=== PATIENT | female | born 1960 | race Caucasian/White ===

== ENCOUNTER 2020-06-25 14:46 | Emergency (ER) | payer OTHER ==
[2020-06-25 16:06] VITALS: PULSE 86; TEMP 97.7
[2020-06-25 16:53] LABS: Appearance,Urine Clear (Clear); Bilirubin,Urine Negative (Negative); Blood,Urine Negative (Negative); Color,Urine Yellow; Glucose,Urine (UA) Negative (Negative); Hyaline Casts,Urine 11 /lpf (0-2); Ketones,Urine Negative (Negative); Leukocyte Esterase,Urine Trace (Negative); Mucus,Urine Rare /hpf; Nitrite,Urine Negative (Negative); PH, Urine 6.5 (5.0-8.0); Protein,Urine 1+ (Negative); Squamous Epithelial Cell,Urine <1 /hpf (0-4); Urobilinogen,Urine <2.0 mg/dL (<2.0); WBC,Urine 1 /hpf (0-5)
--- NOTE | 2020-06-25 17:33 | XR ---
RESULT: HISTORY: fall with pain. TECHNIQUE: 2 views of the right tibia and fibula were obtained. COMPARISON: None. FINDINGS: There is no acute fracture or dislocation. The visualized joint spaces are preserved. Atherosclerotic calcifications are seen. Partially imaged prepatellar soft tissue edema. IMPRESSION: Soft tissue edema without acute osseous abnormality.
[2020-06-25] MEDS ORDERED: FUROSEMIDE 10 MG/ML 2 ML VIAL IV ONE (17:58)
[2020-06-25] MEDS ORDERED: FUROSEMIDE 20 MG TAB PO STA (18:04)
[2020-06-25 18:11] VITALS: BP 136/79; RESP 16
--- NOTE | 2020-06-25 18:11 | ED ---
Fall HPI - General Source: patient, RN notes reviewed Mode of arrival: ambulatory <Houston Brewster - Last Filed: 06/25/20 18:32> <Jyotsna Khalil - Last Filed: 06/27/20 12:09> - General Chief Complaint: Fall Stated Complaint: Unable to urinate, Dizziness, confusion Time Seen by Provider: 06/25/20 17:44 - History of Present Illness Initial Comments: Patient is a 60-year-old female that presents to emergency department status post fall with a right leg injury. She notes that she didn't fall very far and cut hit her caballero which caused a blood blister which then turned into a small skin tear. She was in no apparent pain or distress while sitting up in bed during exam and interview. She noted that she has been taking Lasix at home for fluid retention. She did report that she's missed the last 3 doses of Lasix. She reports that she is very puffy all over the plantar legs, stomach, general area. She stated that her genital area was puffy and her legs were pinching it. She denied any chest pain first breath headache nausea vomiting diarrhea constipation fever fatigue chills. (Houston Brewster) - Related Data Allergies Allergy/AdvReac Type Severity Reaction Status Date / Time hydrochlorothiazide Allergy Rash/Hives Verified 06/25/20 16:06 Review of Systems ROS Other: All systems not noted in ROS Statement are negative. <Houston Brewster - Last Filed: 06/25/20 18:32> ROS Other: All systems not noted in ROS Statement are negative. <Jyotsna Khalil - Last Filed: 06/27/20 12:09> ROS Statement: Those systems with pertinent positive or pertinent negative responses have been documented in the HPI. Past Medical History Additional Past Medical History / Comment(s): LUPUS History of Any Multi-Drug Resistant Organisms: None Reported Past Surgical History: Orthopedic Surgery Past Psychological History: No Psychological Hx Reported Smoking Status: Never smoker Past Alcohol Use History: Occasional Past Drug Use History: None Reported <Houston Brewster - Last Filed: 06/25/20 18:32> General Exam Limitations: no limitations General appearance: alert, in no apparent distress Head exam: Present: atraumatic, normocephalic, normal inspection Eye exam: Present: normal appearance, PERRL, EOMI. Absent: scleral icterus, conjunctival injection, periorbital swelling Neck exam: Present: normal inspection. Absent: tenderness, meningismus, lymphadenopathy Respiratory exam: Present: normal lung sounds bilaterally. Absent: respiratory distress, wheezes, rales, rhonchi, stridor Cardiovascular Exam: Present: regular rate, normal rhythm, normal heart sounds. Absent: systolic murmur, diastolic murmur, rubs, gallop, clicks GI/Abdominal exam: Present: soft, normal bowel sounds. Absent: distended, tenderness, guarding, rebound, rigid Extremities exam: Present: normal inspection, full ROM, normal capillary refill, other (One plus edema bilateral lower extremities, patient does take Lasix at home). Absent: tenderness, pedal edema, joint swelling, calf tenderness Neurological exam: Present: alert, oriented X3, CN II-XII intact Psychiatric exam: Present: normal affect, normal mood Skin exam: Present: warm, dry, intact, normal color, other (2 cm x 2 cm skin tear to the anterior side of the distal portion of the right caballero.). Absent: rash <Houston Brewster - Last Filed: 06/25/20 18:32> Course Vital Signs 06/25/20 06/25/20 16:00 18:10 Temperature 97.7 F Pulse Rate 86 86 Respiratory 17 16 Rate Blood Pressure 173/100 136/79 O2 Sat by Pulse 96 99 Oximetry Medical Decision Making <Houston Brewster - Last Filed: 06/25/20 18:32> <Jyotsna Khalil - Last Filed: 06/27/20 12:09> - Medical Decision Making 60-year-old female complaining of fall with right lower leg pain. X-ray of the right lower leg, urinalysis ordered. X-ray negative for any acute fracture or dislocation. Line urinalysis negative for UTI. Case discussed with Dr. Khalil, patient can discharge home. (Houston Brewster) I was available for consultation in the emergency department. The history and physical exam were done by the midlevel provider. I was consulted for this patients care. I reviewed the case with the midlevel provider and based on their presentation of the patient, I agree with the assessment, medical decision making and plan of care as documented. Chart was dictated using [employer] dictation software. Attempts were made to correct any dictation errors however some typographical errors may persist. Patient was seen during a national state of emergency due to the Covid-19 pandemic. (Jyotsna Khalil) - Lab Data Lab Results 06/25/20 Range/Units 16:35 Urine Color Yellow Urine Appearance Clear (Clear) Urine pH 6.5 (5.0-8.0) Ur Specific [place] 1.010 (1.001-1.035) Urine Protein 1+ H (Negative) Urine Glucose (UA) Negative (Negative) Urine Ketones Negative (Negative) Urine Blood Negative (Negative) Urine Nitrite Negative (Negative) Urine Bilirubin Negative (Negative) Urine Urobilinogen <2.0 (<2.0) mg/dL Ur Leukocyte Esterase Trace H (Negative) Urine WBC 1 (0-5) /hpf Ur Squamous Epith Cells <1 (0-4) /hpf Hyaline Casts 11 H (0-2) /lpf Urine Mucus Rare H (None) /hpf Disposition Is patient prescribed a controlled substance at d/c from ED?: No Time of Disposition: 18:33 <Houston Brewster - Last Filed: 06/25/20 18:32> <Jyotsna Khalil - Last Filed: 06/27/20 12:09> Clinical Impression: Fall Disposition: HOME SELF-CARE Condition: Stable Instructions (If sedation given, give patient instructions): Fall Prevention for Older Adults (ED) Additional Instructions: Please return to the Emergency Department if symptoms worsen or any other concerns. Take Lasix as prescribed at home by her primary care physician. Follow-up with primary care in 3-5 days. Continue basic wound care management of a skin tear by keeping it clean and covered. Take [id number] anti-inflammatories for pain management. Referrals: Konrad Munoz DO [Primary Care Provider] - 1-2 days
== END 2020-06-25 19:07 | disposition home or self-care (01) ==
LOC: EC 14:46
DX: S81.811A Laceration without foreign body, right lower leg, initial encounter (principal); Z88.8 Allergy status to other drugs, medicaments and biological substances; W19.XXXA Unspecified fall, initial encounter
CPT/HCPCS: 81001; 99283